=== PATIENT | female | born 1990 ===

== ENCOUNTER 2022-10-31 10:40 | Emergency (ER) | payer OTHER, SELFPAY ==
[2022-10-31 11:04] VITALS: BP 106/72; PULSE 64; RESP 16; TEMP 36.6; O2SAT 100; BMI 40.0
--- NOTE | 2022-10-31 13:54 | ED.EYEPROB ---
HPI - Eye Problem General Chief complaint: Eye Problems Stated complaint: ? FB R Eye Time Seen by Provider: 10/31/22 12:24 Source: patient Mode of arrival: ambulatory Limitations: other (Patient surgery attendant used.) History of Present Illness HPI Narrative: 32-year-old female presents complaints of right eye burning for the past 3 days, patient reports 3 days ago she got a drop of bleach and her right eye. Patient does not wear contact lenses. She reports that initially was swollen however now improved. Patient denies vision changes, fevers, chills, headache, vision changes, dizziness, nausea, vomiting, abdominal pain. Related Data Previous Rx's Medication Instructions Recorded sulfacetamide sodium 10 % eye drops 2 drp ophthalmic (eye) Q4H 5 days 10/31/22 #15 mL Allergies Allergy/AdvReac Type Severity Reaction Status Date / Time No Known Allergies Allergy Verified 10/31/22 11:19 Review of Systems Review of Systems: Constitutional : No Weight loss, No Fever, No Chills, No Fatigue, No Malaise ENT/Mouth : No sore throat, No Rhinorrhea Eyes: No Eye Pain, No Swelling, No Redness, +burning to eye Respiratory : No Cough, No Sputum, No Wheezing Gastrointestinal : No Nausea, No Vomiting, No Diarrhea, No Constipation, No abdominal Pain, No Hematochezia, No Melena Genitourinary : No Dysuria, No Urinary Frequency, No Hematuria, Musculoskeletal : No joint pain, No Myalgias, No Joint Swelling Skin : No Skin Lesions, No rash Neuro : No Weakness, No Numbness, No Dizziness, No Headache Psych : No Anxiety/Panic, No Depression All other systems reviewed and are negative Yes all other systems are reviewed and are negative [facility] Past Medical History Attestation statement: The following information was validated with the patient. Source: old records reviewed and nursing notes reviewed Social History Social History Advance Directives: No Advance Directives Information Provided: Yes Physical Exam Vital Signs: Vital Signs: Last Vital Signs Temp 97.8 F 10/31/22 11:04 Pulse 64 10/31/22 11:04 Resp 16 10/31/22 11:04 BP 106/72 10/31/22 11:04 Pulse Ox 100 10/31/22 11:04 O2 Del Method Room Air 10/31/22 11:04 BMI result Body Mass Index 40.0 vss Appearance: Alert.? Oriented X3.? No acute distress.? Head: Normocephalic, atraumatic, no step-offs or deformities Eyes: Pupils equal, round and reactive to light.?EOMI pain free. Normal visual acuity 20/30 bilaterally with pockets Snellen Chart Fluorescein stain with no uptake. Negative Joe sign. No signs of globe rupture. Neck: Normal inspection.? Neck supple.? CVS: Normal heart rate and rhythm.? Pulses normal.? Respiratory: No respiratory distress.? Breath sounds normal.? Abdomen: Soft and nontender.? Skin: Skin warm and dry.? Normal skin color.? Normal skin turgor.? Extremities: No lower extremity edema.? No calf ttp. 5/5 strength to bilateral upper and lower extremities Neuro: Oriented X 3.? No motor deficit.? No sensory deficit. CN 2-12 intact Medications Administered Discontinued Medications Generic Name Dose Route Start Last Admin Trade Name Freq PRN Reason Stop Dose Admin Fluorescein Sodium 1 strip 10/31/22 12:41 10/31/22 12:51 Fluorescein Sodium Strip EYE-BOTH 10/31/22 12:42 1 strip ONCE ONE Administration Tetracaine HCl 3 drop 10/31/22 12:41 10/31/22 12:51 Tetracaine Hcl/Pf 0.5% Oph Caitlyn 4 Ml Drops EYE-BOTH 10/31/22 12:42 3 drop ONCE ONE Administration Medical Decision Making Medical Decision Making [facility] Narrative: 1400 32-year-old female presents with right eye discomfort status post getting bleach in at 3 days ago complains of persistent burning. Not a contact lens wear. Physical exam significant for Pupils equal, round and reactive to light.?EOMI pain free. Normal visual acuity 20/30 bilaterally with pockets Snellen Chart Fluorescein stain with no uptake. Negative Joe sign. No signs of globe rupture. This is likely a chemical burn to the eye, 3 days later, patient has already washed dry out. No signs of corneal abrasion, globe rupture. This is not consistent with acute closed angle glaucoma wet macular degeneration. No visual disturbances. No indication for imaging. Will discharge on Bleph-10 and ophthalmology follow-up Differential Diagnosis Differential Diagnoses: The differential diagnosis associated with the presentation includes This is likely a chemical burn to the eye, 3 days later, patient has already washed dry out. No signs of corneal abrasion, globe rupture. This is not consistent with acute closed angle glaucoma wet macular degeneration. No visual disturbances. No indication for imaging. Core Measures AMI core measures followed: Yes Measure exclusions: not indicated Critical Care Time Critical Care Time Critical Care Time: No Discharge Plan Discharge Clinical Impression: Chemical burn of eye Patient Disposition: Home, Self-Care Instructions: Chemical Eye Muñiz (ED) Additional Instructions: Take your medications as prescribed. If you were prescribed antibiotics today, it is important that you take your medication to their entirety, do not skip any doses, do not finish them early. Follow-up with your primary care provider this week. Return to the emergency department with new or worsening symptoms. Such as fevers, chills, chest pain, shortness of breath, nausea, vomiting, dizziness, headache, vision changes, lethargy In case of emergency call 911 Follow-up with an eye doctor information below Lore raya w yo jihan yo preskri w la. Si yo te preskri w antibyotik priya a, li enp?li eitan w lore raya ou an sunshine, bren blunt d?z, bren parker yo bon?. Swiv ak founis? swen prensipal ou grace?n sa a. Retounen nan depatman ijans ak sent?m lalo guajardo ki fortino pi grav. Tankou lafy?v, frison, doul? nan pwatrin, souf kout, k? plen, vomisman, v?tij, malt?t, chanjman vizrip, svenaji. Yu ka ijans rele 911 Swiv ak yon dokt? je enf?thuy sharma Prescriptions: New sulfacetamide sodium 10 % drops 2 drp ophthalmic (eye) Q4H 5 Days Qty: 15 0RF Referrals: Angel Plunkett [Physician] - 2 days Jake White MD [Primary Care Provider] - 2 days Stand Alone Forms: Work/School Release
== END 2022-10-31 14:02 | disposition home or self-care (01) ==
PROVIDERS: Emergency Provider Emergency Medicine; PCP Internal Medicine
DX: T54.3X1A Toxic effect of corrosive alkalis and alkali-like substances, accidental (unintentional), initial encounter (principal); T26.61XA Corrosion of cornea and conjunctival sac, right eye, initial encounter; Y93.9 Activity, unspecified; Y92.9 Unspecified place or not applicable; Y99.9 Unspecified external cause status
CPT/HCPCS: 99282; 99283

== ENCOUNTER 2023-01-29 12:56 | Emergency (ER) | payer MEDICAID, SELFPAY ==
--- NOTE | ~2023-01-29 | US_ITS ---
EXAMINATION: US PELVIS CLINICAL INFORMATION: Pelvic pain COMPARISON: None available. TECHNIQUE: Ultrasound of the pelvis is performed using both transabdominal and transvaginal transducers along with Doppler. Transvaginal imaging is performed due to inadequate visualization transabdominally. FINDINGS: Uterus is anteverted and measures 9.5 x 4.6 x 5.3 cm in dimension. Endometrial thickness is normal measuring 1 cm. Probable scar. No focal uterine lesion is seen. Small nabothian cysts in the cervix. The right ovary measures 2.7 x 2.1 x 1.3 cm. There is a tubular structure in the right adnexa measuring 1.7 x 3.4 x 1.9 cm questionable for hydrosalpinx. Left ovary is normal and measures 2.9 x 1.5 x 2.3 cm. There is trace fluid in the pelvis. US/US pelvic and transvaginal IMPRESSION: 1.7 x 3.4 x 1.9 cm tubular structure in the right adnexa questionable for hydrosalpinx.
[2023-01-29 13:10] VITALS: BP 133/80; PULSE 91; RESP 18; TEMP 36.8; O2SAT 100; BMI 37.4
--- NOTE | 2023-01-29 13:40 | ED.GENADULT ---
HPI - General Adult General Chief complaint: General Medical Stated complaint: Lower abd pain? 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 Reports recent miscarriage (7 mo ago) and unsuccessful attempts at getting since. States she is unsure if she is at present. Reports regular cycles with 4 days of menstruation. LMP 8 days ago. Admits to painful cramping during menses. Patient reports vaginal delivery 2 years ago without complications. Does not currently have a primary care doctor or OBGYN. Not on contraceptives. Denies concern for STIs. Patient currently has no physical complaints in the ED. 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 Related Data Previous Rx's Medication Instructions Recorded sulfacetamide sodium 10 % eye drops 2 drp ophthalmic (eye) Q4H 5 days 10/31/22 #15 mL Allergies Allergy/AdvReac Type Severity Reaction Status Date / Time No Known Allergies Allergy Verified 01/29/23 13:03 Review of Systems Review of Systems: Constitutional: No fever, chills, fatigue, night sweats, weight changes ENT/Mouth: No ear pain, hearing loss, nasal congestion, sinus pain, rhinorrhea, sore throat Eyes: No eye pain, swelling, redness, vision changes, discharge Cardio: No chest pain, palpitations, VEGA, orthopnea, peripheral edema Pulm: No SOB, cough, sputum, wheezing, dyspnea, hemoptysis GI: No nausea, vomiting, hematemesis, abdominal pain, diarrhea, constipation, hematochezia, melena : No irregular bleeding, dysuria, frequency, urgency, hesitancy, hematuria, flank pain, urinary flow changes, urinary incontinence or retention MSK: No back pain, neck pain, joint pain, myalgias Skin: No lesions, rashes Neuro: No weakness, numbness, paresthesias, LOC, dizziness, headache All other systems reviewed and are negative. [facility] Past Medical History Attestation statement: The following information was validated with the patient. Source: old records reviewed and nursing notes reviewed Social History Social History Smoked in Last 30 Days: No Use of substances other than those prescribed or required for medical reasons: No Advance Directives: No Advance Directives Information Provided: No Physical Exam ED Vital Signs: Vital Signs - 24 hr 01/29/23 13:10 01/29/23 16:31 Temperature 98.3 F 98 F Pulse Rate 91 68 Respiratory Rate 18 18 Blood Pressure 133/80 109/70 Pulse Oximetry 100 98 Oxygen Delivery Method Room Air Room Air BMI result Body Mass Index 37.4 Const General: cooperative, no acute distress, alert and awake Orientation/consciousness: patient oriented x3 Limitations: no limitations HENMT Head: Yes normal to inspection Ears: hearing grossly normal bilaterally General nose exam: Normal external nose present Eyes General: appearance normal, both eyes and all related structures Neck Neck: Yes normal visual inspection and Yes no meningeal signs Chest Chest palpation & inspection: normal inspection of the chest Resp Effort & Inspection: normal respiratory effort Auscultation: clear to auscultation bilaterally Cardio Rate: regular rate Rhythm: regular rhythm Heart sounds: S1 normal heart sound present and S2 normal heart sound present Peripheral pulses: Peripheral pulses 2+ throughout GI Inspection: Yes normal to inspection Palpation (GI): Soft to palpation, nontender, no guarding and No Rebound tenderness present General: Yes no CVA tenderness Back/Spine/Pelvis Back: no CVA tenderness Skin General skin exam: no rashes or lesions noted Neuro General: patient oriented x3, gait normal, moves all extremities and no meningeal signs Cranial nerves: Yes CN's II-XII intact bilaterally Extrem General: Yes normal to inspection and Yes full ROM Course Course Course Narrative: This is an RME: Additional HPI, ROS, PE not included below will be deferred to primary provider. 32 yo F presents w/ complaints of lower abd pain was however now she doesnt know if she is . needs a PCP. Poor historian. Patrol Mother used Plan- labs, pelvic US Reevaluation(s) Reevaluation #1: 1523-- CBC without leukocytosis. Chemistry without acute electrolyte abnormality requiring intervention. Serum bHCG negative. Urine without infection or blood > no UTI. Pelvic/transvaginal ultrasound showing question right adnexal hydrosalpinx, otherwise unremarkable. 1600--Discussed unremarkable lab results with patient. Informed patient of possible right adnexal hydrosalpinx found on US and the importance of following up with OBGYN for further fertility work up. Patient verbalized understanding. All questions answered at this time. Will provide patient with PCP and OBGYN referal. Patient agreeable with disposition and stable for d/c. [employer]seed oil refiner utilized during discussion. Medical Decision Making Medical Decision Making [facility] Narrative: 32 year old A1 female with no significant pmhx presenting today seeking PCP/ OBGYN referral. VSS. Patient nontoxic appearing, in no acute distress. RRR. Lungs CTA b/l. Abdomen soft, NT/ND. Pelvic exam not indicated. Clinical concern for infertility vs regular menstruation. Labs, UA, and pelvic/TV ultrasound ordered in triage. Differential Diagnosis Differential Diagnoses: The differential diagnosis associated with the presentation includes As above. Admission/Observation Not indicated. Lab Data [facility] Lab Attestation statement: I reviewed the patient's lab results. As above. 01/29/23 14:56 01/29/23 14:56 Labs: Lab Results 01/29/23 01/29/23 Range/Units 14:56 15:00 WBC 6.7 (4.8-10.8) X10*3/uL RBC 3.87 L (4.20-5.50) X10*6/uL Hgb 11.7 L (12.0-16.0) g/dl Hct 35.4 L (37.0-47.0) % MCV 91.5 (80.0-98.0) fL MCH 30.2 (27.0-33.0) pg MCHC 33.1 (31.0-35.0) g/dl RDW 12.6 (11.0-16.0) % Plt Count 262 (160-400) X10*3/uL MPV 9.9 (9.4-12.3) fL Immature Gran % (Auto) 0.1 (0.0-0.4) % Neut % (Auto) 43.1 L (45-73) % Lymph % (Auto) 45.1 H (20-40) % [place] % (Auto) 6.4 (2-11) % Eos % (Auto) 4.6 H (0-4) % Baso % (Auto) 0.7 (0-2) % Lymph # (Auto) 3.0 (1.2-4.9) X10*3/uL [place] # (Auto) 0.4 (0.1-1.2) X10*3/uL Eos # (Auto) 0.3 (0.0-0.4) X10*3/uL Baso # (Auto) 0.1 (0.0-0.2) X10*3/uL Abs Immat Gran (auto) 0.01 (0.00-0.03) X10*3/uL Absolute Neuts (auto) 2.9 (2.0-8.3) x10*3/uL Absolute Nucleated RBC 0.000 (0.0-0.012) X10*3/uL Nucleated RBC % (auto) 0.0 (0.0-0.2) /100WBC Sodium 138 (135-145) mmol/L Potassium 3.6 (3.3-5.1) mmol/L Chloride 107 (96-108) mmol/L Carbon Dioxide 27 (22-29) mmol/L Anion Gap 8 L (12-20) BUN 9 (9-16) mg/dL Creatinine 0.72 (0.5-1.4) mg/dL Estim Creat Clear Calc 128.9 Estimated GFR > 60 Random Glucose 89 (60-115) mg/dL Calcium 9.4 (8.4-10.2) mg/dL Magnesium 1.8 (1.6-2.6) mg/dL Total Bilirubin 0.3 (0.0-1.0) mg/dL AST 19 (5-31) U/L ALT 17 (0-31) U/L Alkaline Phosphatase 72 (39-117) U/L Total Protein 7.6 (6.5-8.0) g/dL Albumin 4.1 (3.5-5.0) g/dL Lipase 18 (8-78) U/L Beta HCG, Quant < 2 mIU/mL Urine Color Yellow Urine Appearance Clear Urine pH 8.5 (5.0-9.0) Ur Specific Sheridan 1.020 (1.005-1.025) Urine Protein Negative (Neg-Trace) mg/dL Urine Glucose (UA) Negative (Negative) mg/dL Urine Ketones Negative (Negative) mg/dL Urine Blood Negative (Negative) Urine Nitrite Negative (Negative) Ur Leukocyte Esterase Negative (Negative) Independent Interpretation I performed an independent interpretation of an: Ultrasound Interpretation: US with normal uterus and endometrium, agree with radiologist's interpretation. Radiology Impression Discussion of test interpretation with radiology: I have reviewed the radiologist's reading. Radiologist Impression: US pelvic and transvaginal IMPRESSION: 1.7 x 3.4 x 1.9 cm tubular structure in the right adnexa questionable for hydrosalpinx. External Record Review External record reviewed: Inpatient record Critical Care Time Critical Care Time Critical Care Time: No Discharge Plan Discharge Clinical Impression: Hydrosalpinx, Infertility counseling Patient Disposition: Home, Self-Care Additional Instructions: Your lab workup today was reassuring. You tested negative for . The ultrasound of your pelvis shows mild blockage of flow from your right fallopian tube. Please follow-up with your primary care physician and OBGYN as this may cause difficulty getting . You have been provided with these referrals. Call to make an appointment. They will not call you. Return to the emergency department if you develop new or worsening symptoms. In the case of emergency, call 911. Travay laboratwa ou priya a te rasire. Ou te teste negatif eitan gwos?s. Ltrason basen ou a montre yon ti kras blokaj nan koule nan tib tronp dwat ou. Tanpri swiv dokt? ou ak OBGYN paske sa ka lak?z difikilte eitan w ansent. Yo te ba w referans sa yo. Rele eitan pran rip mendosa. Yo pap rele w. Retounen tereza feliz si ou devlope nouvo sent?m oswa sent?m yo fortino pi grav. Tereza su ijans, rele 911. Prescriptions: No Action sulfacetamide sodium 10 % drops 2 drp ophthalmic (eye) Q4H 5 Days Qty: 15 0RF [place]: [facility] [place] [facility] [place] [facility] [place] [facility] [Provider Group] [facility] [place] [facility] [Provider Group] Collin Goldsmith MD [Physician] - Interventions: ED Discharge Assessment Last Done: 01/29/23 16:35 Discharge Date/Time: 01/29/23 16:35
[2023-01-29 15:03] LABS: MANUAL DIFF FLAG NO
[2023-01-29 15:12] LABS: Appearance Urine Clear; Color Urine Yellow; Glucose Urine UA Negative (Negative); Leukocyte Esterase Urine Negative (Negative); Nitrite Urine Negative (Negative); PH 8.5 (5.0-9.0); Urine Blood Negative (Negative); Urine Ketones Negative (Negative); Urine Protein Negative (Neg-Trace)
[2023-01-29 15:13] LABS: Basophils Absolute Auto 0.1 X10*3/uL (0.0-0.2); Basophils Percent Auto 0.7 % (0-2); Eosinophils Absolute Auto 0.3 X10*3/uL (0.0-0.4); Eosinophils Percent Auto 4.6 % (0-4); Hematocrit 35.4 % (37.0-47.0); Hemoglobin 11.7 g/dl (12.0-16.0); Imm Gran Abs Auto 0.01 X10*3/uL (0.00-0.03); Imm Gran Pct Auto 0.1 % (0.0-0.4); Lymphocytes Percent Auto 45.1 % (20-40); Mean Corpuscular HGB Conc 33.1 g/dl (31.0-35.0); Mean Corpuscular Hemoglobin 30.2 pg (27.0-33.0); Mean Corpuscular Volume 91.5 fL (80.0-98.0); Mean Platelet Volume 9.9 fL (9.4-12.3); Monocytes Absolute Auto 0.4 X10*3/uL (0.1-1.2); Monocytes Percent Auto 6.4 % (2-11); Neutrophils Absolute Auto 2.9 x10*3/uL (2.0-8.3); Neutrophils Percent Auto 43.1 % (45-73); Platelet Count 262 X10*3/uL (160-400); Red Blood Count 3.87 X10*6/uL (4.20-5.50); Red Cell Distribution Width 12.6 % (11.0-16.0); White Blood Count 6.7 X10*3/uL (4.8-10.8)
[2023-01-29 15:48] LABS: Alanine Aminotransferase 17 U/L (0-31); Albumin Level 4.1 g/dL (3.5-5.0); Alkaline Phosphatase 72 U/L (39-117); Anion Gap 8 (12-20); Aspartate Amino Transferase 19 U/L (5-31); Bilirubin Total 0.3 mg/dL (0.0-1.0); Blood Urea Nitrogen 9 mg/dL (9-16); Calcium 9.4 mg/dL (8.4-10.2); Carbon Dioxide 27 mmol/L (22-29); Chloride 107 mmol/L (96-108); Creatinine Clr Calc Pharmacy 128.9; Estimated Glomerular Filt Rate > 60; Glucose Random 89 mg/dL (60-115); HCG Quantitative < 2 mIU/mL; Lipase 18 U/L (8-78); Magnesium 1.8 mg/dL (1.6-2.6); Potassium 3.6 mmol/L (3.3-5.1); Sodium 138 mmol/L (135-145); Total Protein 7.6 g/dL (6.5-8.0)
[2023-01-29 16:31] VITALS: BP 109/70; PULSE 68; RESP 18; TEMP 36.6; O2SAT 98
== END 2023-01-29 16:35 | disposition home or self-care (01) ==
PROVIDERS: Physician Assistant; Emergency Provider Student in an Organized Health Care Education/Training Program
DX: N70.11 Chronic salpingitis (principal); R10.30 Lower abdominal pain, unspecified
CPT/HCPCS: 36415; 76830; 76856; 80053; 81003; 83690; 83735; 84702; 85025; 99284

== ENCOUNTER 2023-02-18 18:21 | Outpatient (REF) | payer MEDICAID, SELFPAY | END 2023-02-18 18:22 | disposition home or self-care (01) | LOC: HO.HHCLNP 18:21 | PROVIDERS: Visit Provider Internal Medicine | DX: N70.11 Chronic salpingitis (principal) | CPT/HCPCS: 36415; 81513; 87481; 87491; 87591; 87661 ==

== ENCOUNTER 2023-02-19 09:18 | Outpatient (REF) | payer MEDICAID, SELFPAY ==
[2023-02-19 11:27] LABS: MANUAL DIFF FLAG NO
[2023-02-19 11:42] LABS: Basophils Absolute Auto 0.1 X10*3/uL (0.0-0.2); Basophils Percent Auto 1.1 % (0-2); Eosinophils Absolute Auto 0.4 X10*3/uL (0.0-0.4); Eosinophils Percent Auto 7.7 % (0-4); Hematocrit 36.3 % (37.0-47.0); Hemoglobin 11.9 g/dl (12.0-16.0); Lymphocytes Absolute Auto 2.6 X10*3/uL (1.2-4.9); Mean Corpuscular HGB Conc 32.8 g/dl (31.0-35.0); Mean Corpuscular Hemoglobin 30.2 pg (27.0-33.0); Mean Corpuscular Volume 92.1 fL (80.0-98.0); Mean Platelet Volume 10.3 fL (9.4-12.3); Monocytes Absolute Auto 0.5 X10*3/uL (0.1-1.2); Monocytes Percent Auto 8.1 % (2-11); Neutrophils Absolute Auto 2.1 x10*3/uL (2.0-8.3); Neutrophils Percent Auto 37.1 % (45-73); Platelet Count 289 X10*3/uL (160-400); Red Blood Count 3.94 X10*6/uL (4.20-5.50); Red Cell Distribution Width 12.4 % (11.0-16.0); White Blood Count 5.7 X10*3/uL (4.8-10.8)
[2023-02-19 12:21] LABS: Alanine Aminotransferase 22 U/L (0-31); Albumin Level 4.1 g/dL (3.5-5.0); Alkaline Phosphatase 61 U/L (39-117); Anion Gap 12 (12-20); Aspartate Amino Transferase 25 U/L (5-31); Bilirubin Total 0.5 mg/dL (0.0-1.0); Blood Urea Nitrogen 12 mg/dL (9-16); Calcium 9.5 mg/dL (8.4-10.2); Carbon Dioxide 24 mmol/L (22-29); Chloride 106 mmol/L (96-108); Estimated Glomerular Filt Rate > 60; Glucose Random 91 mg/dL (60-115); Potassium 3.9 mmol/L (3.3-5.1); Sodium 138 mmol/L (135-145); Total Protein 7.7 g/dL (6.5-8.0)
[2023-02-19 12:26] LABS: TSH reflex Free T4 1.13 uIU/mL (0.32-4.0)
[2023-02-20 08:30] LABS: Syphilis Screen Nonreactive (Nonreactive)
[2023-02-20 10:08] LABS: HBS Num1 151.83 mIU/mL (0-7.99); HBc Num1 6.93 S/CO (0.00-0.79); HBsAGNum1 0.52 S/CO (0.00-0.99); HIV AB/AG Nonreactive (Nonreactive); HIV Num 1 0.05 S/CO (0.00-0.99); Hepatitis A Antibody IgM 0.44 Index (0-0.79); Hepatitis B Surface Antigen Negative (Negative); ~HepC Num1 0.09 S/CO (0.00-0.79); ~Hepatitis A Antibody IgM Nonreactive (Nonreactive); ~Hepatitis B Surface Antibody REACTIVE (Nonreactive); ~Hepatitis C Antibody Nonreactive (Nonreactive)
[2023-02-20 11:27] LABS: HBc Num2 6.91 S/CO; HBc Num3 6.77 S/CO; Hepatitis B Core Antibody Reactive (Nonreactive)
== END 2023-02-19 09:19 | disposition home or self-care (01) ==
LOC: HO.HHCL 09:18
PROVIDERS: Visit Provider Internal Medicine
DX: O03.9 Complete or unspecified spontaneous abortion without complication (principal)
CPT/HCPCS: 36415; 80053; 84443; 85025; 86704; 86706; 86709; 86780; 86803; 87340; 87389